=== PATIENT | male | born 1990 | race African-American/Black ===

== ENCOUNTER 2018-04-04 15:42 | Emergency (ER) | payer OTHER ==
[~2018-04-04] VITALS: Ht 185.4 cm; Wt 109.3 kg
[2018-04-04 15:50] VITALS: BP 114/59
[2018-04-04] MEDS ORDERED: MOBIC7.5 MG PO (16:10)
== END 2018-04-04 16:18 | disposition home or self-care (01) ==
LOC: ER 15:42
DX: S92.511A Displaced fracture of proximal phalanx of right lesser toe(s), initial encounter for closed fracture (principal); W22.8XXA Striking against or struck by other objects, initial encounter; Y92.89 Other specified places as the place of occurrence of the external cause; Y93.89 Activity, other specified; Y99.8 Other external cause status